=== PATIENT | female | born 1985 | race Caucasian/White ===

== ENCOUNTER 2020-03-16 14:26 | Emergency (ER) | payer OTHER, SELFPAY ==
[2020-03-16 14:28] VITALS: BP 138/93; PULSE 93; RESP 18; TEMP 36.9; O2SAT 96; BMI 34.1
[2020-03-16 14:38] VITALS: BP 138/93
--- NOTE | 2020-03-16 14:43 | XRR_ITS ---
PROCEDURE INFORMATION: Exam: XR Left Hand Exam date and time: 03/16/2020 2:45 PM Age: 35 years old Clinical indication: Injury or trauma; Injury history: Laceration; Work related; Initial encounter; Left; Index finger; Injury date: 03/16/20; Additional info: Laceration to left index finger. TECHNIQUE: Imaging protocol: XR Left hand. Views: 3 or more views. COMPARISON: MRI Wrist w/o LEFT* [id number] 12/27/2016 3:06 PM FINDINGS: Bones/joints: There is no fracture or dislocation. There is no focal osseous lesion. The joint spaces are intact. Soft tissues: No foreign body. XR/XR hand LT min 3V* [id number] IMPRESSION: No fracture.
--- NOTE | 2020-03-16 14:45 | W.ED.WOUNDLC ---
HPI - Wound/Laceration General: Chief Complaint: Wound/Laceration Stated Complaint: cut finger @ work Time Seen by Provider: 03/16/20 14:28 History of Present Illness: HPI narrative: Patient is a 35-year-old female who comes to the ED with laceration to left index finger. Patient says that injury occurred at work just prior to arrival to ED. Patient says she was cutting up some green peppers and accidentally cut her left index finger she rinsed it and then wrapped it with Band-Aid and tape to get it to stop bleeding. Patient unsure of last tetanus shot. Place: work Patient tetanus UTD: No Associated symptoms: Denies chills, fever(s), nausea or vomiting Review of Systems Const: Denies: fever(s), chills or fatigue Eyes: Denies: change in vision or eye discomfort ENMT: Denies: throat pain, odynophagia, nasal discharge or nasal congestion Card: Denies: chest pain, palpitations, edema, swelling of feet/ankles, dyspnea on exertion or orthopnea Resp: Denies: dyspnea, productive cough or non-productive cough GI: Denies: abdominal pain, nausea, vomiting, diarrhea, constipation or hematochezia : Denies: flank pain, dysuria or hematuria Musc: Denies: neck pain, back pain or extremity swelling Skin/Breast: Reports: new lesions (Laceration to left index finger.); Denies: rash Neuro: Denies: headache(s), numbness in extremities or weakness in extremities Physical Exam Const: COMMON NORMALS: no acute distress, patient oriented x3 and alert GENERAL APPEARANCE: cooperative and comfortable HENMT: COMMON NORMALS: normocephalic HEAD & SCALP: normocephalic MOUTH: Normal oral and palatal mucosa present THROAT: posterior oropharynx normal and uvula midline Neck/C-Spine: COMMON NORMALS: supple GENERAL: Yes normal visual inspection Resp: COMMON NORMALS: normal respiratory effort, No retractions, No use of accessory muscles and clear to auscultation bilaterally AUSCULTATION: clear to auscultation bilaterally Cardio: COMMON NORMALS: regular rate, regular rhythm, S1 normal heart sound present, S2 normal heart sound present, No gallops present (Cardio), No clicks present (Cardio), No murmurs present (Cardio) and Peripheral pulses 2+ throughout RATE: regular rate RHYTHM: regular rhythm HEART SOUNDS: S1 normal heart sound present and S2 normal heart sound present PERIPHERAL PULSES: Peripheral pulses 2+ throughout GI: COMMON NORMALS: Normal to inspection, nondistended, normoactive bowel sounds present, Soft to palpation, non-tender and no masses PALPATION: Yes Soft to palpation : COMMON NORMALS: Yes no CVA tenderness BLADDER/KIDNEY EXAM: Yes no CVA tenderness Back/Pelvis: COMMON NORMALS: no CVA tenderness Extremity: NARRATIVE EXTREMITY EXAM: Patient has a laceration to the dorsal side of the left index finger. It is approximately half a centimeter in length and goes over the distal medial border of the nail. Cut does not involve the nail matrix. It is not actively bleeding. Clean-cut with no foreign body visualized. GENERAL: Yes normal exam except as noted Neuro: COMMON NORMALS: patient oriented x3 and moves all extremities SENSORIUM/ORIENTATION: Yes alert Skin: NARRATIVE SKIN EXAM: Half a centimeter laceration to left index finger?details in extremity section of exam. GENERAL SKIN EXAM: dry skin Procedures Laceration Laceration 1: Site: hand (index finger) Side (If applicable): left Size (cm): 0.5 Description: linear and clean Depth: simple, single layer Pre-repair: irrigated extensively (with normal saline) Skin layer closed with: other (Dermabond) Technique: other (dermabond) Course Vital Signs: Vital signs: Vital Signs Temperature 98.4 F 03/16/20 14:28 Pulse Rate 93 03/16/20 14:28 Respiratory Rate 16 03/16/20 15:31 Blood Pressure 126/95 03/16/20 15:31 Pulse Oximetry 96 03/16/20 14:28 MDM - Wound/Laceration MDM Narrative: Medical decision making narrative: Patient is a 35-year-old female comes to the ED with a laceration on her index finger. X-ray showed no acute fracture or foreign body seen. Laceration was irrigated extensively with normal saline. Laceration was closed using Dermabond and nurse wrapped finger with bandage. Patient was sent home with a prescription of cephalexin for prophylactic treatment of infection. Her tetanus shot was updated while here in the ED. She was discharged and told to follow-up with PCP in 7 to 10 days. She was given information on how to care for him clean laceration area. All age-appropriate Worker's Comp. paperwork was filled out. Return to ED precautions given. Patient understood and agreed with plan. Imaging Data^: Xray Ortho: Attestation: I personally reviewed and interpreted this imaging study as follows: My impression: Left hand x-ray?no acute fractures or foreign body seen. Radiologist's impression: [facility] [address] [place] [address] XRay Report Signed Patient: Ariana Cartagena Unit #: [id number] : 1985 Age/Sex: 35 / F ADM Date: 03/16/20 Loc: ER Room/Bed: Attending Dr: Ordering Provider/Ordering MD: Jasen Buenrostro Date of Service: 03/16/20 Procedure(s): XR hand LT min 3V* [id number] Accession Number(s): [id number] Report Number: [id number] PROCEDURE INFORMATION: Exam: XR Left Hand Exam date and time: 03/16/2020 2:45 PM Age: 35 years old Clinical indication: Injury or trauma; Injury history: Laceration; Work related; Initial encounter; Left; Index finger; Injury date: 03/16/20; Additional info: Laceration to left index finger. TECHNIQUE: Imaging protocol: XR Left hand. Views: 3 or more views. COMPARISON: MRI Wrist w/o LEFT* [id number] 12/27/2016 3:06 PM FINDINGS: Bones/joints: There is no fracture or dislocation. There is no focal osseous lesion. The joint spaces are intact. Soft tissues: No foreign body. XR/XR hand LT min 3V* [id number] IMPRESSION: No fracture. Dictated By: Adam Obrien MD Signed By: Adam Obrien MD Signed Date/Time: 03/16/20 1518 DD/ 15 Discharge Plan Discharge Patient Disposition: Home Clinical Impression: Laceration Condition: Stable Prescriptions: New Keflex 500 mg capsule 500 mg PO TID 4 Days Qty: 12 RF: 0 No Action No Known Home Medications RF: 0 Discharge Orders: Discharge Order (Routine); Ordered 03/16/20 Ordered By: Jasen Buenrostro Referrals: Linwood Lentz, DAIR[employer] SALES CONSULTANT-C [Primary Care Provider] - Discharge Diet: Regular Discharge Activity: Increase activity as tolerated Patient Instructions: Finger Laceration (ED) Activity Restrictions/Additional Instructions: Take full course of antibiotics as prescribed. Keep laceration site clean and dry for the next 48 hours. Then after that you can clean and re-bandage daily. Watch for signs of infection such as redness, warmth, increased tenderness and puslike drainage. If you see the signs of infection return to the ED, urgent care or PCP for reevaluation. call your PCP to schedule a follow-up appointment for reevaluation in the next 7 to 10. Continue taking all home meds. Follow discharge plans as discussed. You can return to the ED if symptoms worsen. Discharge Date/Time: 03/16/20 15:30 Coding Level of Care Code ED Actuarial Trainee for Dixie Godoy Exam Comprehensive
[2020-03-16] MEDS: tetanus-dipt-pertussis 0.5 mL SDV IM (15:02)
[2020-03-16] MEDS: cephALEXin 500 mg Capsule PO (15:02)
[2020-03-16 15:31] VITALS: BP 126/95; RESP 16
== END 2020-03-16 15:30 | disposition home or self-care (01) ==
PROVIDERS: Emergency Provider Physician Assistant; PCP Nurse Practitioner
DX: S61.211A Laceration without foreign body of left index finger without damage to nail, initial encounter (principal); W26.0XXA Contact with knife, initial encounter; Z23 Encounter for immunization
CPT/HCPCS: 12345; 73130; 90471; 90715; 99282; 99283

== ENCOUNTER → 2020-06-04 13:45 | Outpatient (BNVA) | payer OTHER, SELFPAY | PROVIDERS: PCP Nurse Practitioner; Visit Provider Nurse Practitioner Family | DX: Z11.59 Encounter for screening for other viral diseases (principal); Z20.828 Contact with and (suspected) exposure to other viral communicable diseases; J06.9 Acute upper respiratory infection, unspecified | CPT/HCPCS: 87635 ==

== ENCOUNTER 2021-05-14 14:23 | Emergency (ER) | payer OTHER, SELFPAY ==
[2021-05-14 14:30] VITALS: BP 151/104; PULSE 76; RESP 16; TEMP 36.7; O2SAT 98
--- NOTE | 2021-05-14 18:57 | W.ED.DIZZY ---
Documented by User: JOANNA Dowd 05/14/21 19:33 HPI - Dizziness General: Chief Complaint: Dizziness Stated Complaint: Dizzy, Lightheaded, Nausea, Headache Time Seen by Provider: 05/14/21 18:50 History of Present Illness: HPI Narrative: Patient complains about dizziness since this morning. He has some sinus problems. Has dizziness with movement of head. Patient also has undiagnosed hypertension. Did have gestational hypertension. Patient is a smoker also. Denies any chest pain shortness of breath fever chills. MD elicited complaint: dizziness Onset (ago): hour(s) Timing: awoke with symptoms Severity: mild Description: sense of movement History of similar symptoms: No Associated symptoms: Reports no associated symptoms, nasal congestion and other (Sinus pressure); Denies chest pain, chills, headache(s), nausea or vomiting Associated neuro symptoms: Reports no associated symptoms Review of Systems Const: Denies: fever(s), chills or body aches Eyes: Denies: change in vision or blurry vision ENMT: Reports: nasal congestion; Denies: throat pain Card: Denies: chest pain or dyspnea on exertion Resp: Denies: dyspnea, productive cough or non-productive cough GI: Denies: abdominal pain, nausea or vomiting Musc: Denies: extremity pain Skin/Breast: Denies: rash Neuro: Denies: headache(s) Psych: Denies: anxiety or depression Waqas/Lymph: Denies: easy bruising PFSH ED PFSH: Social History Smoking and tobacco status: current every day smoker Second hand smoke exposure: Yes Smoking risk assessment/counseling performed?: No Alcohol intake: never Agree to transfusion: Yes (03/24/2020 Per Patient) Physical Exam Const: COMMON NORMALS: no acute distress, average body habitus and patient oriented x3 HENMT: COMMON NORMALS: normocephalic and Normal external nose present HEAD & SCALP: normal to inspection and normocephalic FACE & SINUS: normal facial exam and sinuses nontender NOSE: Normal external nose present TYMPANIC MEMBRANE: TM abnormal TM laterality: right Details: fluid behind TM MOUTH: Normal oral and palatal mucosa present Eye: COMMON NORMALS: conjunctivae normal GENERAL EYE: appearance normal, both eyes and all related structures CONJUNCTIVA: Yes conjunctivae normal Neck/C-Spine: COMMON NORMALS: no JVD Chest: COMMONS NORMALS: normal inspection of the chest Resp: COMMON NORMALS: normal respiratory effort and clear to auscultation bilaterally AUSCULTATION: clear to auscultation bilaterally Cardio: COMMON NORMALS: no JVD, regular rate and regular rhythm RATE: regular rate RHYTHM: regular rhythm GI: COMMON NORMALS: Normal to inspection, nondistended, normoactive bowel sounds present Extremity: COMMON NORMALS: normal to inspection and full ROM Neuro: COMMON NORMALS: patient oriented x3, CN's II-XII intact bilaterally, moves all extremities, no focal motor deficits and no sensory deficits noted Course Vital Signs: Vital signs: Vital Signs Temperature 98.0 F 05/14/21 14:30 Pulse Rate 76 05/14/21 14:30 Respiratory Rate 16 05/14/21 14:30 Blood Pressure 151/104 05/14/21 14:30 Pulse Oximetry 98 05/14/21 14:30 MDM - Dizziness MDM Narrative: Medical decision making narrative: Presents with right ear effusion. Patient has dizziness on waking today. Patient has dizziness with movement of head. Neuro exam is negative. Patient also history of hypertension untreated. Patient is a smoker. Patient will be treated for hypertension with a starter Dosepak ,lisinopri,l antibiotics and steroid for ear effusion patient follow-up primary care provider next 10 to 14 days. Patient will check blood pressure daily. Discharge Plan Discharge Patient Disposition: Home Clinical Impression: Acute effusion of right ear, Dizziness, Tobacco dependency HTN (hypertension) Qualifiers: Hypertension type: primary hypertension Qualified Code(s): I10 - Essential (primary) hypertension Condition: Stable Prescriptions: New Decadron 6 mg tablet 6 mg PO DAILY Qty: 7 RF: 0 Augmentin 875-125 mg tablet 1 tab PO BID Qty: 14 RF: 0 lisinopril 5 mg tablet 5 mg PO DAILY Qty: 20 RF: 0 Discharge Orders: Discharge ED (Routine); Ordered 05/14/21 Ordered By: Dany Yeh Discharge Diet: Usual diet Discharge Activity: Increase activity as tolerated Patient Instructions: Chronic Hypertension (ED), Dizziness (ED), Fluid In The Ear (Serous Otitis Media) (ED) Activity Restrictions/Additional Instructions: Follow-up with medical provider as directed. Take medications as prescribed. Return to the ER or your medical provider if condition worsens. Please read and understand discharge instructions. If any questions ask please. Right blood pressure down daily follow-up your primary care provider next week or 2. Coding Level of Care Code ED Slide Fastener Chain Assembler for Chg Fwd Exam Comprehensive Documented by User: Jeyson Chapa, 05/15/21 01:07 HPI - Dizziness General: Chief Complaint: Dizziness Stated Complaint: Dizzy, Lightheaded, Nausea, Headache Time Seen by Provider: 05/14/21 18:50 PFSH ED PFSH: Social History Smoking and tobacco status: current every day smoker Second hand smoke exposure: Yes Smoking risk assessment/counseling performed?: No Alcohol intake: never Agree to transfusion: Yes (03/24/2020 Per Patient) Course Vital Signs: Vital signs: Vital Signs Temperature 98.0 F 05/14/21 14:30 Pulse Rate 76 05/14/21 14:30 Respiratory Rate 16 05/14/21 14:30 Blood Pressure 151/104 05/14/21 14:30 Pulse Oximetry 98 05/14/21 14:30 MDM - Dizziness MDM Narrative: Medical decision making narrative: This patient was originally seen by JOANNA Cavanaugh. I agree with his history, evaluation, and treatment. Discharge Plan Discharge Patient Disposition: Home Clinical Impression: Acute effusion of right ear, Dizziness, Tobacco dependency HTN (hypertension) Qualifiers: Hypertension type: primary hypertension Qualified Code(s): I10 - Essential (primary) hypertension Condition: Stable Prescriptions: New Decadron 6 mg tablet 6 mg PO DAILY Qty: 7 RF: 0 Augmentin 875-125 mg tablet 1 tab PO BID Qty: 14 RF: 0 lisinopril 5 mg tablet 5 mg PO DAILY Qty: 20 RF: 0 Discharge Orders: Discharge ED (Routine); Ordered 05/14/21 Ordered By: Dany Yeh Discharge Diet: Usual diet Discharge Activity: Increase activity as tolerated Patient Instructions: Chronic Hypertension (ED), Dizziness (ED), Fluid In The Ear (Serous Otitis Media) (ED) Activity Restrictions/Additional Instructions: Follow-up with medical provider as directed. Take medications as prescribed. Return to the ER or your medical provider if condition worsens. Please read and understand discharge instructions. If any questions ask please. Right blood pressure down daily follow-up your primary care provider next week or 2. Coding Level of Care Code ED Slide Fastener Chain Assembler for Chg Fwd Exam Comprehensive
--- NOTE | 2021-05-14 20:20 | ECG_ITS ---
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 Measurements Intervals [place] Rate: 71 P: 45 MI: 181 QRS: 3 QRSD: 111 T: 7 QT: 407 QTc: 443 Interpretive Statements SINUS RHYTHM INCOMPLETE RIGHT BUNDLE BRANCH BLOCK [90+ ms QRS DURATION, TERMINAL R IN V1/V2, 40+ ms S IN I/aVL/V4/V5/V6] MODERATE VOLTAGE CRITERIA FOR LVH, CONSIDER NORMAL VARIANT [MEETS CRITERIA IN ONE OF: R(aVL), S(V1), R(V5), R(V5/V6)+S(V1)] Compared to ECG 12/22/2017 12:00:41 No significant changes Electronically Signed On 05-15-2021 21:40:36 CDT by Janes Pedraza M.D. [id number]
== END 2021-05-14 19:41 | disposition home or self-care (01) ==
PROVIDERS: Emergency Provider Nurse Practitioner Family
DX: R42 Dizziness and giddiness (principal); H93.8X1 Other specified disorders of right ear; I10 Essential (primary) hypertension; F17.210 Nicotine dependence, cigarettes, uncomplicated
CPT/HCPCS: 93005; 99282

== ENCOUNTER → 2022-03-31 16:00 | Outpatient (BNVA) | payer OTHER, SELFPAY | PROVIDERS: Visit Provider Nurse Practitioner Family | DX: J40 Bronchitis, not specified as acute or chronic (principal); Z20.828 Contact with and (suspected) exposure to other viral communicable diseases | CPT/HCPCS: 87635 ==

== ENCOUNTER → 2022-11-02 08:50 | Outpatient (BNVA) | payer BC, SELFPAY | PROVIDERS: PCP Nurse Practitioner Family; Visit Provider Specialist | DX: R20.0 Anesthesia of skin (principal); R20.2 Paresthesia of skin; G56.03 Carpal tunnel syndrome, bilateral upper limbs | CPT/HCPCS: 73110 ==

== ENCOUNTER → 2023-04-24 16:51 | Outpatient (BNVA) | payer BC, SELFPAY | PROVIDERS: Visit Provider Family Medicine | DX: N91.2 Amenorrhea, unspecified (principal); Z34.90 Encounter for supervision of normal pregnancy, unspecified, unspecified trimester | CPT/HCPCS: 81025 ==

== ENCOUNTER → 2023-05-09 09:29 | Outpatient (BNVA) | payer BC, SELFPAY | PROVIDERS: Visit Provider Obstetrics & Gynecology | DX: Z36.87 Encounter for antenatal screening for uncertain dates (principal) | CPT/HCPCS: 76817 ==

== ENCOUNTER → 2023-05-24 13:28 | Outpatient (BNVA) | payer BC, SELFPAY | PROVIDERS: Visit Provider Nurse Practitioner Women's Health | DX: Z34.90 Encounter for supervision of normal pregnancy, unspecified, unspecified trimester (principal) | CPT/HCPCS: 80307; 84315; 84439; 84443; 84481; 85027; 86592; 86762; 86803; 86850; 86900; 87086; 87340; 87806 ==

== ENCOUNTER → 2023-06-12 09:30 | Outpatient (BNVA) | payer BC, SELFPAY | PROVIDERS: Visit Provider Obstetrics & Gynecology | DX: Z34.90 Encounter for supervision of normal pregnancy, unspecified, unspecified trimester (principal); Z12.4 Encounter for screening for malignant neoplasm of cervix | CPT/HCPCS: 87491; 87591; 87624 ==

== ENCOUNTER → 2023-07-10 09:32 | Outpatient (BNVA) | payer BC, SELFPAY | PROVIDERS: Visit Provider Obstetrics & Gynecology | DX: Z34.90 Encounter for supervision of normal pregnancy, unspecified, unspecified trimester (principal) | CPT/HCPCS: 82105; 82950; 84315 ==

== ENCOUNTER → 2023-08-09 09:50 | Outpatient (BNVA) | payer BC, SELFPAY | PROVIDERS: Visit Provider Nurse Practitioner Women's Health | DX: Z34.90 Encounter for supervision of normal pregnancy, unspecified, unspecified trimester (principal) | CPT/HCPCS: 76805; 82951; 82952 ==

== ENCOUNTER → 2023-08-15 13:14 | Outpatient (BNVA) | payer OTHER, SELFPAY | PROVIDERS: Visit Provider Registered Nurse Neonatal Intensive Care | DX: J02.9 Acute pharyngitis, unspecified (principal); R50.9 Fever, unspecified; J11.1 Influenza due to unidentified influenza virus with other respiratory manifestations | CPT/HCPCS: 87400; 87426; 87880 ==

== ENCOUNTER → 2023-10-02 08:08 | Outpatient (BNVA) | payer OTHER, SELFPAY | PROVIDERS: Visit Provider Obstetrics & Gynecology | DX: Z34.92 Encounter for supervision of normal pregnancy, unspecified, second trimester (principal); Z3A.16 16 weeks gestation of pregnancy | CPT/HCPCS: 84315; 85025; 86850 ==

== ENCOUNTER → 2023-10-18 11:08 | Outpatient (BNVA) | payer OTHER, SELFPAY | PROVIDERS: Visit Provider Obstetrics & Gynecology | DX: Z36.87 Encounter for antenatal screening for uncertain dates (principal) | CPT/HCPCS: 76816 ==

== ENCOUNTER 2023-10-23 14:38 | Outpatient (CLI) | payer OTHER, SELFPAY ==
[2023-10-23] VITALS (24 sets, daily range): BP systolic 130–173; BP diastolic 68–91; PULSE 71–85; BMI 37.1
[2023-10-23 15:34] LABS: Basophils # 0.1 10^3/uL (0.0-0.1); Basophils % 0.5 %; Eosinophils # 0.1 10^3/uL (0.0-0.8); Eosinophils % 0.7 %; Lymphocytes # 2.1 10^3/uL (0.8-4.8); Lymphocytes % 19.7 %; Mean Corpuscular HGB Conc 32.4 g/dL (30-55); Mean Corpuscular Hemoglobin 29.7 pg (27-33); Mean Corpuscular Volume 91.8 fl (85-98); Mean Platelet Volume 10.1 fL (7.4-10.4); Monocytes # 0.7 10^3/uL (0.2-0.9); Monocytes % 6.8 %; Neutrophils % 71.3 %; Nucleated Red Blood Cells % 0 %; Platelet Count 282 10^3/cmm (157-399); Red Blood Count 3.16 10^6/uL (3.85-5.65); Red Cell Distribution Width 14.2 % (12.1-15.1); White Blood Count 10.66 10^3/uL (3.29-11.43)
[2023-10-23 16:03] LABS: Alanine Aminotransferase 13 U/L (0-33); Albumin Level 3.6 g/dL (3.5-5.2); Alkaline Phosphatase 138 U/L (35-105); Aspartate Amino Transferase 14 U/L (0-32); Blood Urea Nitrogen 8 mg/dL (6-20); Calcium 9.1 mg/dL (8.5-10.5); Carbon Dioxide 22 mmol/L (22-29); Chloride 102 mmol/L (98-107); Creatinine Clr Calc Pharmacy 181.7908; Globulin 3.4 g/dL (1.3-4.6); Glomerular Filtration Rate 138.8 mL/min (90-130); Glucose 49 mg/dL (65-115); Osmolality Calculated 276 mOsm/kg (285-295); Sodium 135 mmol/L (136-145); Total Bilirubin 0.2 mg/dL (0.15-1.2); Uric Acid 4.3 mg/dL (2.4-5.7)
[2023-10-23 16:45] LABS: Add Urine Microscopic? NO; Charge for UA Resulting for Rev
[2023-10-23 16:55] LABS: Bilirubin Urine Neg (Negative); Blood Urine Neg (Negative); Glucose Urine UA Norm (Normal); Ketones Urine Negative (Negative); Leukocyte Esterase Urine Negative (Negative); Nitrate Urine Negative (Negative); Protein Urine Neg (Negative); Specific Gravity, Urine 1.005 (1.005-1.030); Urine Appearance Clear (CLEAR); Urine Color Straw (Yellow); Urobilinogen Urine Norm (Negative); pH Urine 7 (5-7)
[2023-10-23 17:46] LABS: Urine Creatinine 5 mg/dL (28-217); Urine Protein Random 4 mg/dL
[2023-10-23] MEDS: betamethasone susp 6 mg/mL 1 mL (per mL) 12 MG IM (20:19)
[2023-10-23] MEDS: NIFEdipine ER (24 hr) 30 mg Tablet PO (20:20)
--- NOTE | 2023-10-23 20:20 | PM.OBGYPN ---
EDUCATION DEPARTMENT REGISTRAR Subjective Subjective: Interval history: 38 y.o. SA5 LMP March 19, 2023 EDC December 24, 2023 c/w 6 week sono at 31 w 1 d had elevated BPs at home presented to L&D for BP checks no c/o no headache, blurry vision, abdominal pain, vaginal bleeding + active movements POBHx: , pre-eclampsia Induced at 35 weeks 5 lbs 4 oz Cameron Bearden [place] Labor: Amniotic Membrane Status: Intact Monitor Mode: Palpation Contraction Pattern: Absent Vitals/I&O/Wt Last Vital Signs Pulse 80 10/23/23 20:11 BP 148/87 10/23/23 20:11 Weight last 48 hrs Weight 223 lb 8 oz Physical Exam Narrative: Weight 223 lbs; 5?5 BPs 134 / 68, 173 / 89, 157 / 86, 154 / 86, 150 / 84 Comfortable, awake, alert Lungs: clear Cor: RRR Abd: nontender. FH 32 cm FHTs normal Ext: no edema External monitor: no uterine contractions heart tracing good variability, + accelerations UA today negative for protein Data 10/23/23 15:18 10/23/23 15:18 A&P Assessment and plan (1) : 31 w 1 d Qualifiers: Weeks of gestation: 16 weeks Qualified Code(s): Z3A.16 - 16 weeks gestation of (2) Hypertension affecting : Elevated BPs Patient with no headaches or edema Gestational hypertension vs. preeclampsia Will start Procardia 30 mg XL one PO daily Start 24-h urine collection for protein Celestone 12 mg IM today Bedrest as much as possible discharge to home Return to see me October 30, 2023 Call / return if headaches, blurry vision, malaise, swelling, abdominal pain Attestations Medical Necessity Statement*: patient at 31 w 1 d, with elevated BPs Coding Level of Care Code Acute Code for Chg Fwd Diagnoses 16 weeks gestation of Z3A.16 Weeks of gestation: 16 weeks Hypertension affecting O16.9 Time Spent (min) 60
== END 2023-10-23 21:01 | disposition home or self-care (01) ==
LOC: OPOB 14:39 → OBGYN 14:41
PROVIDERS: Visit Provider Obstetrics & Gynecology
DX: O16.9 Unspecified maternal hypertension, unspecified trimester (principal); Z3A.31 31 weeks gestation of pregnancy
CPT/HCPCS: 36415; 59025; 80053; 81003; 82570; 84156; 84550; 85025; 96372; 99211; J0702

== ENCOUNTER 2023-10-25 11:33 | Outpatient (CLI) | payer OTHER, SELFPAY ==
[2023-10-25 14:18] LABS: Total Volume, Urine 2400 mL
--- NOTE | 2023-10-25 14:50 | PC.NURSE ---
1445 CALLED 24 HOUR URINE PROTEIN RESULTS TO DR. RAMIREZ, THEY WERE NOT CRITICAL BUT CALLED THEM ANYWAY.
== END 2023-10-25 11:34 | disposition home or self-care (01) ==
LOC: LAB 11:35
PROVIDERS: Obstetrics & Gynecology; PCP Nurse Practitioner Family
DX: Z01.89 Encounter for other specified special examinations (principal)
CPT/HCPCS: 84156

== ENCOUNTER → 2023-10-30 08:04 | Outpatient (BNVA) | payer OTHER, SELFPAY | PROVIDERS: PCP Nurse Practitioner Family; Visit Provider Obstetrics & Gynecology | DX: O99.213 Obesity complicating pregnancy, third trimester (principal); Z3A.00 Weeks of gestation of pregnancy not specified | CPT/HCPCS: 76819 ==

== ENCOUNTER 2023-10-30 08:47 | Outpatient (CLI) | payer OTHER, SELFPAY ==
[2023-10-30] VITALS (17 sets, daily range): BP systolic 115–162; BP diastolic 58–101; PULSE 76–97; BMI 36.1
[2023-10-30] MEDS: NIFEdipine ER (24 hr) 30 mg Tablet PO (09:42)
[2023-10-30] MEDS: labetalol 200 mg Tablet PO (12:07)
[2023-10-30 12:38] LABS: Basophils % 0.2 %; Eosinophils # 0.1 10^3/uL (0.0-0.8); Eosinophils % 0.8 %; Hematocrit 34.2 % (36-47); Lymphocytes # 1.7 10^3/uL (0.8-4.8); Lymphocytes % 17.6 %; Mean Corpuscular HGB Conc 31.6 g/dL (30-55); Mean Corpuscular Volume 91.9 fl (85-98); Mean Platelet Volume 10.4 fL (7.4-10.4); Monocytes # 0.4 10^3/uL (0.2-0.9); Monocytes % 3.9 %; Neutrophils # 7.44 10^3/uL (1.8-7.7); Neutrophils % 75.8 %; Nucleated Red Blood Cells % 0 %; Platelet Count 309 10^3/cmm (157-399); Red Blood Count 3.72 10^6/uL (3.85-5.65); Red Cell Distribution Width 14.2 % (12.1-15.1); White Blood Count 9.82 10^3/uL (3.29-11.43)
[2023-10-30 12:57] LABS: Alanine Aminotransferase 11 U/L (0-33); Albumin Level 3.7 g/dL (3.5-5.2); Alkaline Phosphatase 176 U/L (35-105); Anion Gap 17.4 (5-19); Aspartate Amino Transferase 14 U/L (0-32); Blood Urea Nitrogen 9 mg/dL (6-20); Calcium 9.8 mg/dL (8.5-10.5); Carbon Dioxide 24 mmol/L (22-29); Chloride 101 mmol/L (98-107); Creatinine Clr Calc Pharmacy 149.1025; Glomerular Filtration Rate 112.5 mL/min (90-130); Glucose 105 mg/dL (65-115); Osmolality Calculated 285 mOsm/kg (285-295); Potassium 4.4 mmol/L (3.5-5.1); Sodium 138 mmol/L (136-145); Total Bilirubin 0.2 mg/dL (0.15-1.2); Total Protein 7.7 g/dL (6.6-8.7); Uric Acid 4.3 mg/dL (2.4-5.7)
[2023-10-30 13:16] LABS: Urine Creatinine 46 mg/dL (28-217); Urine Protein Random 16 mg/dL
[2023-10-30 13:19] LABS: UPRO/UCREAT Ratio 0.35 mg/mg CR
[2023-10-30 13:43] LABS: Add Urine Microscopic? YES; Bilirubin Urine Neg (Negative); Blood Urine Neg (Negative); Glucose Urine UA Norm (Normal); Ketones Urine Negative (Negative); Leukocyte Esterase Urine 2+ (Negative); Nitrate Urine Negative (Negative); Protein Urine Neg (Negative); Urine Appearance SL Hazy (CLEAR); Urine Color Yellow (Yellow); Urobilinogen Urine Norm (Negative); pH Urine 6 (5-7)
[2023-10-30 13:44] LABS: Add Urine Culture? No; Bacteria Urine 1+ /hpf; RBC Urine 0-4 /hpf (0-2); Squamous Epithelial Cell Urine 15-25 /hpf (0-5); WBC Urine 40-55 /hpf (0-5)
== END 2023-10-30 16:12 | disposition home or self-care (01) ==
LOC: OPOB 08:52 → OBGYN 08:53
PROVIDERS: PCP Nurse Practitioner Family; Visit Provider Obstetrics & Gynecology
DX: O24.419 Gestational diabetes mellitus in pregnancy, unspecified control (principal); O16.9 Unspecified maternal hypertension, unspecified trimester; Z3A.00 Weeks of gestation of pregnancy not specified
CPT/HCPCS: 36415; 59025; 80053; 81001; 82570; 84156; 84315; 84550; 85025; 99211

== ENCOUNTER 2023-11-01 10:36 | Outpatient (CLI) | payer OTHER, SELFPAY ==
[2023-11-01] VITALS (57 sets, daily range): BP systolic 128–163; BP diastolic 77–94; PULSE 76–110; RESP 16–17; TEMP 35.9; O2SAT 96–100
[2023-11-01] MEDS: dextrose 5%-lactated ringers 1,000 ML 125 ML IV (11:24)
[2023-11-01 11:26] LABS: Basophils % 0.4 %; Eosinophils # 0.1 10^3/uL (0.0-0.8); Eosinophils % 1.1 %; Lymphocytes # 2.2 10^3/uL (0.8-4.8); Lymphocytes % 19.6 %; Mean Corpuscular HGB Conc 32.4 g/dL (30-55); Mean Corpuscular Hemoglobin 29.1 pg (27-33); Mean Corpuscular Volume 89.7 fl (85-98); Mean Platelet Volume 10.7 fL (7.4-10.4); Monocytes # 0.6 10^3/uL (0.2-0.9); Monocytes % 5.4 %; Neutrophils # 8.19 10^3/uL (1.8-7.7); Neutrophils % 71.7 %; Nucleated Red Blood Cells % 0 %; Platelet Count 312 10^3/cmm (157-399); Red Blood Count 3.68 10^6/uL (3.85-5.65); Red Cell Distribution Width 14.2 % (12.1-15.1); White Blood Count 11.42 10^3/uL (3.29-11.43)
[2023-11-01] MEDS: magnesium sulfate premix 4 GM/100 ML PREMIX IV (11:30)
[2023-11-01 11:34] LABS: Urine Appearance SL Hazy (CLEAR); Urine Color Light yellow (Yellow); pH Urine 6 (5-7)
[2023-11-01 11:35] LABS: Add Urine Microscopic? YES; Bilirubin Urine Neg (Negative); Blood Urine Neg (Negative); Glucose Urine UA Norm (Normal); Ketones Urine Negative (Negative); Leukocyte Esterase Urine 2+ (Negative); Nitrate Urine Negative (Negative); Protein Urine Neg (Negative); Specific Gravity, Urine 1.005 (1.005-1.030); Urobilinogen Urine Norm (Negative)
[2023-11-01 11:40] LABS: Alanine Aminotransferase 14 U/L (0-33); Albumin Level 3.9 g/dL (3.5-5.2); Alkaline Phosphatase 172 U/L (35-105); Anion Gap 17.4 (5-19); Aspartate Amino Transferase 15 U/L (0-32); Blood Urea Nitrogen 13 mg/dL (6-20); Carbon Dioxide 21 mmol/L (22-29); Chloride 100 mmol/L (98-107); Globulin 4.3 g/dL (1.3-4.6); Glomerular Filtration Rate 112.5 mL/min (90-130); Glucose 81 mg/dL (65-115); Osmolality Calculated 277 mOsm/kg (285-295); Potassium 4.4 mmol/L (3.5-5.1); Sodium 134 mmol/L (136-145); Total Bilirubin 0.2 mg/dL (0.15-1.2); Total Protein 8.2 g/dL (6.6-8.7); Uric Acid 4.6 mg/dL (2.4-5.7)
[2023-11-01 11:43] LABS: Urine Creatinine 11 mg/dL (28-217); Urine Protein Random 6 mg/dL
[2023-11-01 11:45] LABS: UPRO/UCREAT Ratio 0.55 mg/mg CR
[2023-11-01] MEDS: magnesium sulfate premix 2 GM/50 ML PIGGYBACK IV (11:53)
[2023-11-01 11:59] LABS: Bacteria Urine TRACE /hpf; RBC Urine 0-4 /hpf (0-2); Transitional Epi Cells Urine 0-4 /hpf
[2023-11-01 12:00] LABS: Add Urine Culture? No
[2023-11-01] MEDS: magnesium sulfate premix 20 GM/500 ML BAG IV (12:00)
--- NOTE | 2023-11-01 14:01 | PM.OBGYHP ---
Providers/Chief Complaint Admitting Physician: Mandeep Potts MD Primary TRIMMER OPERATOR THREE KNIFE: Mandeep Potts MD Primary Care Provider: Lora Olvera Chief Complaint: Elevated BP HPI TRIMMER OPERATOR THREE KNIFE History of Present Illness Ariana Cartagena is a 38 year old female SA5 EDC December 24, 2023 at 32 w 3 d had elevated BPs on October 30, 2023 was seen in L&D BPs were 173 / 89, 157 / 86, 150 / 84 patient was started on Procardia 30 mg XL once daily BPs were better following Procardia 24-h urine showed 240 mg protein patient received one dose of Celestone 12 mg IM on October 30, 2023 today, patient returned c/o headache and feeling being in a tunnel with blurry vision BP on presentation was 180 / 120 no abdominal pain, vaginal bleeding + movements patient had mildly elevated 3-h GTT: 83 / 182 / 166 / 92 was being followed with accuchecks POBHx: , pre-eclampsia was induced at 35 weeks; 5 lbs 4 oz Present Details : 7 Para: 1 Medications/Allergies Home Medications Medication Instructions Recorded Confirmed Last Taken Type vitamins no.162-iron 1 tab PO QDAY #100 tabs 04/24/23 11/01/23 11/01/23 08:00 Rx gluconate 12 mg-folic acid 1 mg tablet blood-glucose meter (Blood Glucose #1 ea 08/10/23 10/30/23 Unknown Rx Monitoring kit) aspirin 81 mg capsule 81 mg PO DAILY 09/05/23 11/01/23 11/01/23 08:00 History blood sugar diagnostic (Accu-Chek #100 ea 10/16/23 10/30/23 Unknown Rx Guide test strips) lancets (Accu-Chek Softclix #200 ea 10/16/23 10/30/23 Unknown Rx Lancets) insulin NPH isoph U-100 human 100 See Rx Instructions SUBCUT 10/18/23 11/01/23 10/24/23 Rx unit/mL (3 mL) subcutaneous pen DIRECTED #15 mL (Humulin N NPH U-100 Insulin KwikPen) insulin regular human 100 unit/mL See Rx Instructions SUBCUT 10/18/23 11/01/23 10/24/23 Rx (3 mL) subcutaneous pen DIRECTED #15 mL pen needle, diabetic 29 gauge x #100 ea 10/18/23 10/30/23 Unknown Rx 1/2 (Ultra-Thin II Insulin Pen Adair) nifedipine 30 mg tablet,extended 30 mg PO DAILY #30 tabs 10/23/23 11/01/23 11/01/23 08:00 Rx release 24 hr (Procardia XL) Allergies Allergy/AdvReac Type Severity Reaction Status Date / Time No Known Allergies Allergy Verified 10/30/23 08:22 PFSH TRIMMER OPERATOR THREE KNIFE PFSH: Family History Mother Diabetes Stroke Father Diabetes Stroke Denies family history of Cervical cancer Ovarian cancer Breast cancer Hypertension Uterine cancer Social History Smoking and tobacco/nicotine status: current every day tobacco/nicotine user Second hand smoke exposure: Yes Alcohol intake: never Substance/Drug Use: never Agree to transfusion: Yes (03/24/2020 Per Patient) History History History 7 Term 1 0 Miscarriages/Ectopic 5 Living Children 1 Care FREDERIC Calculator Estimated Delivery Date Method Current WG Current Estimate 12/24/23 LMP (Certain) 32w 3d Other Estimates 12/28/23 Ultrasound #1 31w 6d Vitals/I&O/Wt Last Vital Signs Temp 96.6 F L 11/01/23 11:47 Pulse 89 11/01/23 13:57 Resp 17 11/01/23 11:00 BP 140/91 11/01/23 13:47 Pulse Ox 100 11/01/23 13:57 10/31/23 11/01/23 11/01/23 22:59 06:59 14:59 Intake Total 227.083 / 227.083 Output Total 1150 / 1150 Balance -922.917 / -922.917 Physical Exam Narrative: BPs in L&D 154 / 77, 136 / 80 awake, alert Lungs: clear Cor: RRR Abd: nontender. FH 32 cm FHTs normal Ext: no edema External monitor: no uterine contractions heart tracing good variability, + accelerations UA today negative Hgb 10.7 platelets 312 K AST, ALT normal Urinary Catheter Management: [place]inson: Cath Placed During This Visit: yes Urinary Catheter Date of Insertion: 11/01/23 Urinary Catheter Time of Insertion: 11:38 Data 11/01/23 11:10 11/01/23 11:10 Results Labs OB ([facility]): Obstetrics US 10/18/23 Obstetrics US/Biophysical Profile 10/30/23 Blood Type A Negative 11/01/23 Antibody Screen Positive 11/01/23 Hct 33.0 % (36-47) L 11/01/23 Hgb 10.70 g/dL (11.27-16.99) L 11/01/23 Rho(D) Type Rh negative 11/01/23 Plt Count 312 10^3/cmm (157-399) 11/01/23 Hep Bs Antigen Non-reactive (Nonreactive) 05/24/23 Hepatitis C Antibody Non-reactive (Nonreactive) 05/24/23 Rubella IgG Antibody 64.6 IU/mL (0.0-10.0) H 05/24/23 RPR Nonreactive (Nonreactive) 05/24/23 HIV 1&2 Ab & HIV 1 Ag Non-reactive (Non-Reactiv) 05/24/23 TSH 0.14 uIU/mL (0.27-4.20) L 05/24/23 Free T4 1.45 ng/dL (0.82-1.77) 05/24/23 C.trachomatis RNA (TMA) Not detected (NOT DETECTED) 06/12/23 N.gonorrhoeae RNA (TMA) Not detected (NOT DETECTED) 06/12/23 T. vaginalis Amp RNA Not detected (NOT DETECTED) 06/12/23 Chlamydia/GC Comment See note 06/12/23 Gest Glucose Tolerance mg/dL 08/09/23 Uric Acid 4.6 mg/dL (2.4-5.7) 11/01/23 HCG, Qual Positive (Negative) H 04/24/23 Urine Opiates Screen Negative ng/mL (Negative) 05/24/23 Ur Barbiturates Screen Negative ng/mL (Negative) 05/24/23 Ur Phencyclidine Scrn Negative ng/mL (Negative) 05/24/23 Ur Amphetamines Screen Negative ng/mL (Negative) 05/24/23 U Benzodiazepines Scrn Negative ng/mL (Negative) 05/24/23 Urine Cocaine Screen Negative ng/mL (Negative) 05/24/23 U Marijuana (THC) Screen Negative ng/mL (Negative) 05/24/23 Micro Urine Specimen 05/24/23 Pap Smear Interpret See note 06/12/23 A&P Assessment and plan (1) : 32 w 3 d Qualifiers: Weeks of gestation: 16 weeks Qualified Code(s): Z3A.16 - 16 weeks gestation of (2) Hypertension affecting : Elevated BPs with severe features start MgSO4 patient received one dose of Celestone 12 mg IM on October 30, 2023 [facility] (3) History of pre-eclampsia in prior , currently : Attestations Medical Necessity Statement*: patient at 32 w 3 d with elevated BPs Coding Level of Care Code Acute Code for Chg Fwd Diagnoses 16 weeks gestation of Z3A.16 Weeks of gestation: 16 weeks Hypertension affecting O16.9 History of pre-eclampsia in prior , currently O09.299 Time Spent (min) 60
[2023-11-01] MEDS: betamethasone susp 6 mg/mL 1 mL (per mL) 12 MG IM (14:44)
== END 2023-11-01 15:18 | disposition intermediate care facility (04) ==
LOC: OPOB 10:39 → OBGYN 10:40
PROVIDERS: PCP Nurse Practitioner Family; Visit Provider Obstetrics & Gynecology
DX: O16.2 Unspecified maternal hypertension, second trimester (principal); O09.292 Supervision of pregnancy with other poor reproductive or obstetric history, second trimester; Z3A.16 16 weeks gestation of pregnancy
CPT/HCPCS: 36415; 51702; 59025; 80053; 80503; 81001; 82570; 84156; 84550; 85025; 86850; 86870; 86900; 96372; 99211; J0702; J3475; J7121

== ENCOUNTER → 2024-01-23 15:48 | Outpatient (BNVA) | payer OTHER, SELFPAY | PROVIDERS: PCP Nurse Practitioner Family; Visit Provider Obstetrics & Gynecology | DX: D64.9 Anemia, unspecified (principal) | CPT/HCPCS: 85025 ==

== ENCOUNTER → 2024-04-03 11:49 | Outpatient (BNVA) | payer OTHER, SELFPAY | PROVIDERS: PCP Nurse Practitioner Family; Visit Provider Nurse Practitioner Family | DX: R30.0 Dysuria (principal) | CPT/HCPCS: 81003; 87086 ==

== ENCOUNTER → 2025-03-20 10:52 | Outpatient (BNVA) | payer OTHER, SELFPAY | PROVIDERS: PCP Nurse Practitioner Family; Visit Provider Obstetrics & Gynecology | DX: Z30.9 Encounter for contraceptive management, unspecified (principal) | CPT/HCPCS: 81025 ==

== ENCOUNTER 2025-05-29 11:24 | Emergency (ER) | payer OTHER, SELFPAY ==
[2025-05-29 11:28] VITALS: BP 151/101; PULSE 80; RESP 18; TEMP 36.8; O2SAT 100
--- NOTE | 2025-05-29 11:37 | ECG_ITS ---
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 Measurements Intervals [place]fant Rate: 77 P: 43 DE: 182 QRS: -12 QRSD: 120 T: 5 QT: 391 QTc: 444 Interpretive Statements SINUS RHYTHM POSSIBLE LEFT ATRIAL ENLARGEMENT [-0.1mV P-WAVE IN V1/V2] POSSIBLE RIGHT VENTRICULAR CONDUCTION DELAY [RSR (QR) IN V1/V2] POSSIBLE LEFT VENTRICULAR HYPERTROPHY [VOLTAGE CRITERIA PLUS LAE OR QRS WIDENING] Compared to ECG 05/14/2021 14:33:59 Incomplete right bundle-branch block no longer present Electronically Signed On 05-30-2025 15:25:14 CDT by Tone Martínez M.D. [email or web address]
--- OUTSIDE RECORDS SUMMARY | 2025-05-29 11:38 | XMS_ITS | Encounter Summary ---
Author Organization [facility] Address [address] 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
--- OUTSIDE RECORDS SUMMARY | 2025-05-29 11:38 | XMS_ITS | Clinical Summary ---
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) 09/20/2018 Social History Tobacco Use Types Packs/Day Years Used Date Smoking Tobacco: Light Smoker Smokeless Tobacco: Never Alcohol Use Standard Drinks/Week Comments No 0 (1 standard drink = 0.6 oz pur e alcohol) Comments Unknown Sex and Gender Information Value Date Recorded Sex Assigned at Not on file 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 Gender Identity Not on file Sexual Orientation Not on file Plan of Treatment Health Maintenance Due Date Last Done Comments Hepatitis C Screening 1985 Anxiety Screening 1994 HIV Screening 2001 Depression Screening 01/22/2004 Hepatitis B Vaccine (1 of 3 - 19+ 3-dose series) 2005 Pneumococcal Vaccine 0-50 ye ars (1 of 2 - PCV) 2005 TDAP/DTaP/TD Vaccines (1 - Tdap) 2005 Pap Smear 2007 Cervical Cancer Screening (30-65) 01/22/2016 HPV/Cotest 01/22/2016 COVID-19 Vaccine (1 - 2023-2 5 season) 2025 Influenza Series (#1) 2025 06/26/2018 Meningococcal B Vaccine Aged Out No l onger eligible based on patient's age to complete this topic [place]
--- NOTE | 2025-05-29 12:01 | CT_ITS ---
WS: [id number] CT HEAD TECHNIQUE: Noncontrast CT of the head obtained from the skullbase to the vertex. CLINICAL INFORMATION: Facial/extremity numbness tingling COMPARISON: None. DLP: 1057.[address] scans at [facility] use at least one of these dose optimization techniques: automated exposure control; mA and/or kV adjustment per patient size (includes targeted exams where dose is matched to clinical indication); or iterative reconstruction. FINDINGS: No evidence of intracranial hemorrhage or mass effect. Ventricular system and basal cisterns are patent. No extra-axial fluid collections. No evidence of mass or mass effect. Normal arce-white differentiation. Slightly low-lying cerebellar tonsils likely incidental. Paranasal sinuses and mastoid air cells are well aerated. .Normal visualized soft tissues. CT/CT head wo con* [id number] IMPRESSION: 1. No evidence of intracranial hemorrhage or mass effect. 2. Slightly low-lying cerebellar tonsils likely incidental. 3. No acute intracranial findings.
--- NOTE | 2025-05-29 12:03 | ED_ITS ---
HPI - General Adult 2 General: Chief complaint: General Medical Stated complaint: body tingling, feels shaky Time Seen by Provider: 05/29/25 11:36 History of Present Illness: 40-year-old female presents to the [facility] ency room complaining of generally feeling shaky reporting tingling in her body it starts in her face extends to her arms and legs bilaterally. She has not had any vision changes no other neurologic deficits no difficulty with speech swallowing vision or gait. Associated symptoms: Deny chest pain, dyspnea or rash Related Data Previous Rx's ?Medication ?Instructions ?Recorded medroxyprogesterone 150 mg/mL 150 mg IM .a4fcteoi #1 m L 03/20/25 intramuscular suspension (Depo-Provera) Allergies Allergy/AdvReac Type Severity Reaction Status Date / Time No Known Allergies Allergy Verified 03/20/25 07:51 Review of Systems 2 Const: Denies: fever(s) or chills Card: Denies: chest pain Resp: Denies: dyspnea GI: Denies: abdominal pain : Denies: dysuria, urinary frequency or urinary urgency Musc: Denies: neck pain or back pain Skin/Breast: Denies: rash PFSH ED 2 PFSH: Family History Mother Diabetes Stroke Father Diabetes Stroke Denies family history of Cervical cancer Ovarian cancer Breast cancer Hypertension Uterine cancer Social History Smoking and tobacco/nicotine status: never used tobacco/nicotine Second hand smoke exposure: Yes Alcohol intake: never Substance/Drug Use: never Agree to transfusion: Yes (03/24/2020 Per Patient) Physical Exam 2 Const: COMMON NORMALS: no acute distress GENERAL APPEARANCE: cooperative and comfortable ORIENTATION/CONSCIOUSNESS: Yes awake, Yes oriented to person, Yes oriented to place and Yes oriented to time HENMT: COMMON NORMALS: normocephalic, atraumatic and hearing grossly normal bilaterally HEAD & SCALP: normocephalic and atraumatic Resp: COMMON NORMALS: normal respiratory effort, No retractions, No use of accessory muscles and clear to auscultation bilaterally AUSCULTATION: clear to auscultation bilaterally Cardio: COMMON NORMALS: regular rate, regular rhythm and No murmurs present (Cardio) RATE: regular rate RHYTHM: regular rhythm GI: COMMON NORMALS: Soft to palpation and No hepatosplenomegaly present A USCULTATION: Yes normoactive bowel sounds PALPATION: Yes Soft to palpation, No Tenderness to palpation present (GI), No Guarding due to palpation present (GI) and Yes No hepatosplenomegaly present Extremity: COMMON NORMALS: normal to inspection, capillary refill normal, no clubbing, cyanosis or edema, no calf tenderness and no pedal edema Neuro: SENSORIUM/ORIENTATION: Yes oriented to person, Yes oriented to place and Yes oriented to time OTHER: Neurologically intact no focal neurologic deficits are noted no facial asymmetry no ataxia. Limb strength in all extremities is normal. Sensation normal. Skin: COMMON NORMALS: no rashes or lesions noted GENERAL SKIN EXAM: no rashes or lesions noted Course 2 Vital Signs: Vital signs: Vital Signs Temperature 98.2 F 05/29/25 11:28 Pulse Rate 74 05/29/25 13:37 Respiratory Rate 18 05/29/25 11:28 Blood Pressure 125/105 05/29/25 13:37 Pulse Oximetry 99 05/29/25 13:37 Oxygen Delivery Me thod Room Air 05/29/25 11:28 MDM - General Adult Medical Decision Making Laboratory test unremarkable. She has very slight decrease in her pCO2 on her blood gas. By the time she arrived here her symptoms had completely resolved. From what she describes suspect that she was hyperventilating. Neurologically she is completely intact. CT of head is negative. She has had intermittent episodes at home. Follow-up with her primary care doctor return if she has further episodes. Medical Records I reviewed the patient's medical records. Lab Data I reviewed the patient's lab results. 05/29/25 11:49 05/29/25 11:[address] 05/29/25 12:01 IMPRESSION: 1. No evidence of intracranial hemorrhage or mass effect. 2. Slightly low-lying cerebellar tonsils likely incidental. 3. No acute intracranial findings. Laboratory Results WBC 9.26 10^3/uL (3.29-11.43) 05/29/25 11:49 RBC 4.31 10^6/uL (3.85-5.65) 05/29/25 11:49 Hgb 12.10 g/dL (11.27-16.99) 05/29/25 11:49 Hct 37.6 % (36-47) 05/29/25 11:49 MCV 87.2 fl (85-98) 05/29/25 11:49 MCH 28.1 pg (27-33) 05/29/25 11:49 MCHC 32.2 g/dL (30-55) 05/29/25 11:49 RDW 13.8 % (12.1-15.1) 05/29/25 11:49 Plt Count 360 10^3/cmm (157-399) 05/29/25 11:49 MPV 9.1 fL (7.4-10.4) 05/29/25 11:49 Neut % (Auto) 63.2 % 05/29/25 11:49 Lymph % (Auto) 27.8 % 05/29/25 11:49 [place] % (Auto) 4.9 % 05/29/25 11:49 Eos % (Auto) 2.9 % 05/29/25 11:49 Baso % (Auto) 0.6 % 05/29/25 11:49 Neut # (Auto) 5.85 10^3/uL (1.8-7.7) 05/29/25 11:49 Lymph # (Auto) 2.6 10^3/uL (0.8-4.8) 05/29/25 11:49 [place] # (Auto) 0.5 10^3/uL (0.2-0.9) 05/29/25 11:49 Eos # (Auto) 0.3 10^3/uL (0.0-0.8) 05/29/25 11:49 Baso # (Auto) 0.1 10^3/uL (0.0-0.1) 05/29/25 11:49 Nucleated RBC % (auto) 0 % 05/29/25 11:49 Nucleated RBCs # 0.0 /100WBC 05/29/25 11:49 Specimen Type Arterial 05/29/25 12:00 Sample Site Radial, left 05/29/25 12:00 ABG pH 7.42 (7.35-7.45) 05/29/25 12:00 ABG pCO2 34.6 mmHg (35-45) L 05/29/25 12:00 ABG pO2 82.3 mmHg (80.0-100.0) 05/29/25 12:00 ABG PO2/FiO2 Ratio 391 05/29/25 12:00 ABG HCO3 22.4 mmol/L (22-26) 05/29/25 12:00 ABG O2 Saturation 97.3 05/29/25 12:00 ABG Base Excess -1.5 mmol/L (-2.0-2.0) 05/29/25 12:00 Koffi Test Pos 05/29/25 12:00 A-a O2 Gradient 3.2 mmHg (5-10) L 05/29/25 12:00 Hematocrit 37.4 % (37-47) 05/29/25 12:00 Hgb O2 Saturation 94.5 % (95-100) L 05/29/25 12:00 Carboxyhemoglobin 2.7 %THgb (0.4-20.1) 05/29/25 12:00 Methemoglobin 0.1 % (0.4-1.5) L 05/29/25 12:00 Total Hemoglobin 12.2 g/dL (12-16) 05/29/25 12:00 Sodium 141.0 mmol/L (131-143) 05/29/25 12:00 Potassium 3.4 mmol/L (3.5-5.0) L 05/29/25 12:00 Glucose 125.0 mg/dL (70-115) H 05/29/25 12:00 Ionized Calcium 1.3 mmol/L (1.1-1.4) 05/29/25 12:00 O2 Delivery Device Room air 05/29/25 12:00 FiO2 21.0 % 05/29/25 12:00 Welfare Service Aide ID Rose Marie 05/29/25 12:00 Sodium 139 mmol/L (136-145) 05/29/25 11:49 Potassium 3.5 mmol/L (3.5-5.1) 05/29/25 11:49 Chloride 102 mmol/L (98-107) 05/29/25 11:49 Carbon Dioxide 23 mmol/L (22-29) 05/29/25 11:49 Anion Gap 17.5 (5-19) 05/29/25 11:49 BUN 7 mg/dL (6-20) 05/29/25 11:49 Creatinine 0.6 mg/dL (0.5-0.9) 05/29/25 11:49 GFR Calculation 111.3 mL/min (90-130) 05/29/25 11:49 Glucose 148 mg/dL (65-115) H 05/29/25 11:49 Calculated Osmolality 289 mOsm/kg (285-295) 05/29/25 11:49 Calcium 9.5 mg/dL (8.5-10.5) 05/29/25 11:49 Total Bilirubin 0.3 mg/dL (0.15-1.2) 05/29/25 11:49 AST 21 U/L (0-32) 05/29/25 11:49 ALT 26 U/L (0-33) 05/29/25 11:49 Alkaline Phosphatase 91 U/L (35-105) 05/29/25 11:49 Total Protein 8.2 g/dL (6.6-8.7) 05/29/25 11:49 Albumin 4.4 g/dL (3.5-5.2) 05/29/25 11:49 Globulin 3.8 g/dL (1.3-4.6) 05/29/25 11:49 HCG, Qual Negative (Negative) 05/29/25 11:49 Urine Color Yellow (Yellow) 05/29/25 12:57 Urine Appearance Cloudy (CLEAR) A 05/29/25 12:57 Urine pH 5.5 (5-7) 05/29/25 12:57 Ur Specific [place] 1.010 (1.005-1.030) 05/29/25 12:57 Urine Protein Negative (Negative) 05/29/25 12:57 Urine Glucose (UA) Negative (Normal) 05/29/25 12:57 Urine Ketones Negative (Negative) 05/29/25 12:57 Urine Blood 2+ (Negative) A 05/29/25 12:57 Urine Nitrate Negative (Negative) 05/29/25 12:57 Urine Bilirubin Negative (Negative) 05/29/25 12:57 Urine Urobilinogen 0.2 mg/dL (Negative) 05/29/25 12:57 Ur Leukocyte Esterase 3+ (Negative) A 05/29/25 12:57 Urine RBC 6-10 /hpf (0-2) 05/29/25 12:57 Urine WBC 51-100 /hpf (0-5) H 05/29/25 12:57 Ur Squamous Epith Cells 0-5 /hpf (0-5) 05/29/25 12:57 Amorphous Sediment Not Reportable 05/29/25 12:57 Urine Bacteria 1+ /hpf (NONE) H 05/29/25 12:57 Hyaline Casts 1.65 /lpf 05/29/25 12:57 All radiology interpretation(s) finalized by discharge Discharge Plan Discharge Patient Disposition: Home Clinical Impression: Hyperventilation Condition: Stable Prescriptions: No Action medroxyprogesterone [Depo-Provera] 150 mg/mL suspension 150 mg IM .x2ymycut Qty: 1 4RF Discharge Orders: Discharge ED (Routine); Ordered 05/29/25 Ordered By: Jonh Candelario Discharge Diet: Usual diet Discharge Activity: Resume usual activity Patient Instructions: Opioid Safety, Pain Management, Patient Portal & Ольга Instructions Activity Restrictions/Additional Instructions: Thank you for choosing [facility] for your healthcare needs today. It is very important that you follow up as instructed or that you return to the Emergency Department should you have concerns or if your condition changes or worsens in any way. Emergency department visits are focused on emergent conditions, in some cases you may require further evaluation on an outpatient basis. You were seen in the emergency room with complaints of feeling shaky and tingling throughout your body. Your physical exam was normal and there is no sign of acute stroke. Your laboratory test showed a low carbon dioxide suggestive of hyperventilation. Given your history and your presenting symptoms suspect you did have an episode of hyperventilation. Will discharge you home. It was noted your blood pressure was slightly elevated while you are in the emergency room you should follow-up with your primary care doctor regarding this. (Please note that included in your discharge packet is information concerning opioid safety and pain management. 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
[2025-05-29 12:09] LABS: Hematocrit 37.6 % (36-47); Hemoglobin 12.10 g/dL (11.27-16.99); Mean Corpuscular HGB Conc 32.2 g/dL (30-55); Mean Corpuscular Hemoglobin 28.1 pg (27-33); Mean Corpuscular Volume 87.2 fl (85-98); Nucleated Red Blood Cells % 0 %; Platelet Count 360 10^3/cmm (157-399); Red Blood Count 4.31 10^6/uL (3.85-5.65); White Blood Count 9.26 10^3/uL (3.29-11.43)
[2025-05-29 12:11] LABS: ABG PCO2 34.6 mmHg (35-45); ABG PH Result 7.42 (7.35-7.45); Alveolar-Arterial Oxygen Gradi 3.2 mmHg (5-10); Arterial Blood Gas Hematocrit 37.4 % (37-47); Blood Gas Allen Test Pos; Blood Gas Operator Identificat WALCI; Blood Gas Sample Site Radial, left; Blood Gas Sample Type Arterial; Carboxyhemoglobin 2.7 %THgb (0.4-20.1); Glucose Level-ABG 125.0 mg/dL (70-115); HCO3 ABG 22.4 mmol/L (22-26); Ionized Calcium Level - ABG 1.3 mmol/L (1.1-1.4); Methemoglobin 0.1 % (0.4-1.5); Oxygen Saturation ABG 97.3; PO2 ABG 82.3 mmHg (80.0-100.0); PO2 FiO2 Ratio Arterial Blood 391; Potassium Level - ABG 3.4 mmol/L (3.5-5.0); Sodium Level - ABG 141.0 mmol/L (131-143)
[2025-05-29 12:22] LABS: HCG, Serum Qual Negative (Negative)
[2025-05-29 12:26] LABS: Alanine Aminotransferase 26 U/L (0-33); Albumin Level 4.4 g/dL (3.5-5.2); Alkaline Phosphatase 91 U/L (35-105); Anion Gap 17.5 (5-19); Aspartate Amino Transferase 21 U/L (0-32); Blood Urea Nitrogen 7 mg/dL (6-20); Calcium 9.5 mg/dL (8.5-10.5); Carbon Dioxide 23 mmol/L (22-29); Chloride 102 mmol/L (98-107); Creatinine Clr Calc Pharmacy 147.1445; Globulin 3.8 g/dL (1.3-4.6); Glucose 148 mg/dL (65-115); Osmolality Calculated 289 mOsm/kg (285-295); Potassium 3.5 mmol/L (3.5-5.1); Sodium 139 mmol/L (136-145); Total Protein 8.2 g/dL (6.6-8.7)
[2025-05-29 13:07] LABS: Glucose Urine UA Negative (Normal); Nitrate Urine Negative (Negative); Specific Gravity, Urine 1.010 (1.005-1.030)
[2025-05-29 13:12] LABS: Add Urine Microscopic? YES
[2025-05-29 13:37] VITALS: BP 125/105; PULSE 74; O2SAT 99
[2025-05-29 13:41] LABS: UA Slide Review UA Slide Review Perf
== END 2025-05-29 13:38 | disposition home or self-care (01) ==
PROVIDERS: Emergency Provider Family Medicine
DX: R06.4 Hyperventilation (principal)
CPT/HCPCS: 36415; 36600; 70450; 80051; 80053; 81001; 82330; 82805; 84703; 85025; 87086; 93005; 99284

== ENCOUNTER → 2025-06-11 09:07 | Outpatient (BNVA) | payer OTHER, SELFPAY | PROVIDERS: PCP Nurse Practitioner Family; Visit Provider Nurse Practitioner Family | DX: R73.09 Other abnormal glucose (principal) | CPT/HCPCS: 80053; 83036 ==